=== PATIENT | male | born 1945 | race Caucasian/White ===

== ENCOUNTER 2022-12-13 06:57 | Observation (INO) | payer MEDICARE ==
[2022-12-13] MEDS ORDERED: Aspirin 81 MG Tab.Chew PO ONE (07:03)
[2022-12-13] MEDS ORDERED: Nitroglycerin 0.4 MG Tab.SL SL ONE (07:03)
[2022-12-13] MEDS ORDERED: Sodium Chloride 0.9% 10 ML Syringe FLUSH PRN (07:04)
[2022-12-13 07:45] LABS: ANION GAP 14.6 meq/L (7-15); CHLORIDE,CL 103 mmol/L (98-107); SODIUM,NA 141 mmol/L (136-145)
[2022-12-13 07:46] LABS: ESTIMATED GFR 50 mL/min (>=60)
[2022-12-13 08:11] LABS: CORONAVIRUS COVID-19 NAA NEGATIVE (NEGATIVE); RESPIRATORY SYNCYTIAL VIR NAA NEGATIVE (NEGATIVE)
[2022-12-13] MEDS ORDERED: Sodium Chloride 0.9% 500 ML IV ONE (08:17)
[2022-12-13] MEDS ORDERED: Acetaminophen 500 MG Tab PO ONE (12:15)
[2022-12-13] MEDS ORDERED: Non-Formulary Medication 1 Each (Nabumetone [Nabumetone] 500 MG Tablet) PO SCH (18:00)
[2022-12-13] MEDS ORDERED: sulfaSALAzine 500 MG Tab PO SCH (18:00)
[2022-12-13] MEDS ORDERED: atorvaSTATin 40 MG Tab PO SCH (20:00)
[2022-12-14] MEDS ORDERED: CHLORTHALIDONE PO SCH (08:00)
[2022-12-14] MEDS ORDERED: CHOLECALCIFEROL PO SCH (08:00)
[2022-12-14] MEDS ORDERED: DILTIAZEM HCL 180 MG PO SCH (08:00)
[2022-12-14] MEDS ORDERED: Famotidine 20 MG Tab PO SCH (08:00)
[2022-12-14] MEDS ORDERED: [UNRECOGNIZED DRUG - OTHER] PO SCH (08:00)
[2022-12-14] MEDS ORDERED: ATENOLOL PO SCH (08:00)
[2022-12-14] MEDS ORDERED: Levothyroxine 25 MCG Tab PO SCH (08:00)
[2022-12-14] MEDS ORDERED: Non-Formulary Medication 1 Each (Metformin Hcl [Metformin Hcl Er] 500 MG Tab.Er.24h) PO SCH (08:00)
[2022-12-14] MEDS ORDERED: Non-Formulary Medication 1 Each (Allopurinol [Zyloprim] 300 MG Tablet) PO SCH (08:00)
== END 2022-12-13 15:30 | disposition home or self-care (01) ==
LOC: LL.ED 06:57 → LL.MS 08:12
PROVIDERS: ADMIT Emergency Medicine; ATTEND Emergency Medicine
DX: R07.89 Other chest pain (principal); Z79.899 Other long term (current) drug therapy; Z79.890 Hormone replacement therapy; Z20.822 Contact with and (suspected) exposure to COVID-19
CPT/HCPCS: 0241U; 36415; 71046; 80053; 82550; 84484; 85025; 93005; 96360; 96361; 99284; A9270-GY; G0378; J3490; J7030